=== PATIENT | female | born 1970 | race Caucasian/White ===

== ENCOUNTER → 2019-03-13 | Outpatient (CLI) | payer OTHER | LOC: FIMAGING 15:44 | PROVIDERS: ATTEND Physician Assistant | DX: E04.1 Nontoxic single thyroid nodule (principal) ==

== ENCOUNTER → 2019-03-24 | Outpatient (CLI) | payer OTHER ==
[~2019-03-24] MED LIST: LIDOCAINE 1% 300 MG/30 ML SDV ONE
== END ==
LOC: FIMAGING 12:20
PROVIDERS: ATTEND Physician Assistant
PROC: 0G9K3ZX Drainage of Thyroid Gland, Percutaneous Approach, Diagnostic (ICD-10-PCS; principal; 2019-03-24)
DX: C73 Malignant neoplasm of thyroid gland (principal)

== ENCOUNTER 2019-04-14 12:16 | Observation (INO) | payer OTHER ==
[~2019-04-14 12:16] MED LIST changes: +BUPIVACAINE/EPI 0.5% 30 ML SDV ONE; -LIDOCAINE 1% 300 MG/30 ML SDV ONE; +LR 1,000 ML IV ONE; +THROMBIN (BOVINE) 5,000 UNIT VIAL TP ONE; +ceFAZolin 2 GM/DEXTROSE 100 ML IV ONE
--- NOTE | 2019-04-14 12:34 | PDHPUP ---
History & Physical Update H&P update statement: This history and physical update is based on an assessment of the patient which was completed after admission or registration (within 24 hours), but prior to the surgery/procedure. H&P update: H&P reviewed & patient examined, no change in patient's condition since H&P completed
--- NOTE | 2019-04-14 12:51 | PDANEPAE ---
ANE History of Present Illness Thyroid mass ANE Past Medical History - Cardiovascular History Hx Hypertension: No Hx Arrhythmias: No Hx Chest Pain: No Hx Coronary Artery / Peripheral Vascular Disease: No Hx CHF / Valvular Disease: No Hx Palpitations: No - Pulmonary History Hx COPD: No Hx Asthma/Reactive Airway Disease: No Hx Recent Upper Respiratory Infection: No Hx Oxygen in Use at Home: No Hx Sleep Apnea: No Sleep Apnea Screening Result - Last Documented: Negative - Neurologic History Hx Cerebrovascular Accident: No Hx Seizures: Yes Hx Dementia: No Neurologic History Comment: 2005 STRESS INDUCED RX FOR AWHILE - Endocrine History Hx Diabetes: No Endocrine History Comment: THYROID LUMP - Renal History Hx Renal Disorders: No - Liver History Hx Hepatic Disorders: No - Neurological & Psychiatric Hx Hx Neurological and Psychiatric Disorders: No - Cancer History Hx Cancer: Yes Cancer History Comment: THYROID - Congenital Disorder History Hx Congenital Disorders: No - GI History Hx Gastrointestinal Disorders: No - Other Health History Other Health History: NONE - Chronic Pain History Chronic Pain: No - Surgical History Prior Surgeries: LT KNEE ACL ANE Review of Systems Review of Systems: - Exercise capacity METS (RN): 4 METS ANE Patient History - Allergies Allergies/Adverse Reactions: No Known Allergies Allergy (Verified 04/09/19 11:33) - Home Medications Home Medications: Levonorgestrel [Mirena] 1 each IY [id number] 04/09/19 [Last Taken Unknown] Multivitamins [Multivitamin (*)] 1 each PO DAILY 04/09/19 [Last Taken Unknown] - Anes Hx Anes Hx: no prior problems - Smoking Hx Smoking Status: Never smoked - Family Anes Hx Family Hx Anesthesia Complications: NEG ANE Labs/Vital Signs - Vital Signs Height: 160.02 cm Weight: 61.235 kg ANE Physical Exam - Airway Neck exam: FROM Mallampati Score: Class 2 Mouth exam: normal dental/mouth exam - Pulmonary Pulmonary: no respiratory distress - Cardiovascular Cardiovascular: regular rate and rhythym - ASA Status ASA Status: I ANE Anesthesia Plan Anesthesia Plan: general endotracheal anesthesia
[2019-04-14] MEDS ORDERED: MIDAZOLAM 2 MG/2 ML VIAL IVP ONE (12:52)
[2019-04-14] MEDS ORDERED: MIDAZOLAM 2 MG/2 ML VIAL ONE (12:53)
[2019-04-14] MEDS ORDERED: fentaNYL 100 MCG/2 ML INJ ONE ×2 (13:00→14:47)
[2019-04-14] MEDS ORDERED: PROPOFOL 200 MG/20 ML VIAL ONE (13:01)
[2019-04-14] MEDS ORDERED: ONDANSETRON 4 MG/2 ML VIAL ONE ×2 (13:14→14:45)
[2019-04-14] MEDS ORDERED: DEXAMETHASONE 4 MG/ML VIAL ONE (13:14)
[2019-04-14] MEDS ORDERED: ROCURONIUM 50 MG/5 ML VIAL ONE (13:14)
[2019-04-14] MEDS ORDERED: oxyCODONE IR 5 MG TAB PO PRN (13:20)
[2019-04-14] MEDS ORDERED: HYDROCODONE/APAP 5/325 TAB PO PRN (13:20)
[2019-04-14] MEDS ORDERED: PROMETHAZINE HCL 25 MG/ML INJ IVP PRN ×2 (13:20→20:58)
[2019-04-14] MEDS ORDERED: NALOXONE HCL 0.4 MG/ML INJ IVP PRN ×2 (13:20→14:48)
[2019-04-14] MEDS ORDERED: ONDANSETRON 4 MG/2 ML VIAL IVP PRN ×2 (13:20→14:51)
[2019-04-14] MEDS ORDERED: SUGAMMADEX SODIUM 200 MG/2 ML VIAL IVP ONE (14:21)
--- NOTE | 2019-04-14 14:31 | POSTANESTH ---
Post Anesthetic Evaluation Cardiovascular Status: Similar to Pre-Op Cond, Tx Hyper/Hypo-tension Respiratory Status: Similar to Pre-op Cond. Level of Consciousness/Mental Status: Can Participate in Eval, Alert and Oriented Pain Control: Adequate, Prn Tx Ordered Nausea/Vomiting Control: Adequate, Prn Tx Ordered Complications Possibly Related to Anesthesia: None Noted
[2019-04-14] MEDS: fentaNYL 100 MCG/2 ML INJ IVP PRN ×2 (14:49→15:01)
[2019-04-14] MEDS ORDERED: HYDROmorphONE/DILAUDID 1 MG/ML INJ ONE (15:15)
[2019-04-14] MEDS ORDERED: LABETALOL HCL 5 MG/ML 20 ML MDV ONE (15:18)
[2019-04-14] MEDS: LABETALOL HCL 5 MG/ML 20 ML MDV IVP PRN ×4 (15:18→15:52)
[2019-04-14] MEDS: HYDROmorphONE/DILAUDID 1 MG/ML INJ IVP PRN ×7 (15:27→21:16)
[2019-04-14] MEDS ORDERED: ENALAPRILAT DIHYDRATE 1.25 MG/ML VIAL ONE ×2 (16:19→16:31)
[2019-04-14] MEDS ORDERED: ENALAPRILAT DIHYDRATE 1.25 MG/ML VIAL IV ONE (16:30)
--- NOTE | 2019-04-14 18:17 | POSTOPPROG ---
Post Op Note Date of Operation: 04/14/19 Surgeon: Sam Neil Welder Tech: Julieth Zaragoza Anesthesiologist: Sim Butcher Anesthesia: GET(General Endotracheal) Pre-op Diagnosis: papillary thyroid CA Post-op Diagnosis: same Procedure: total thyroidectomy, central compartment LN bx's Findings: papillary CA in left lobe confirmed on frozen section Inf/Abcess present in the surg proc area at time of surgery?: No EBL: Minimal Complications: none Bowel Protocol: N/A Clean Closure Performed: N/A Specimen(s): to path
--- NOTE | 2019-04-14 19:04 | SOAPPROG ---
SOAP Progress Note Assessment/Plan: Assessment: POSTOP TOTAL THYROIDECTOMY VOICE OKAY/CHOVSTEK'S NEGATIVE/WOUND OKAY Plan: HOME IN THE A.M. 04/14/19 19:02 Objective: Vital Signs Temp Pulse Resp BP Pulse Ox 36.8 C 72 16 148/97 H 98 04/14/19 18:17 04/14/19 18:17 04/14/19 18:17 04/14/19 18:17 04/14/19 18:17 04/13/19 04/14/19 04/15/19 05:59 05:59 05:59 Intake Total 920 Output Total 5 Balance 915 ICD10 Worksheet Patient Problems: Problems Problem Status Onset Graves' disease with exophthalmos Acute - ICD10 Problem Qualifiers (1) Graves' disease with exophthalmos
[2019-04-14] MEDS: DOCUSATE SODIUM 100 MG CAP PO SCH (21:16)
[2019-04-15] MEDS: OXYCODONE/APAP 5/325 TAB PO PRN ×3 (01:45→07:23)
[2019-04-15 07:10] VITALS: BP 103/63
[2019-04-15] MEDS: DOCUSATE SODIUM 100 MG CAP PO SCH (07:23)
--- NOTE | 2019-04-15 08:21 | SOAPPROG ---
SOAP Progress Note Assessment/Plan: Assessment/Plan: 48 Y F s/p total thyroidectomy for papillary thyroid CA. POD# 1. Doing well. Ca++ wnl. Pain controlled. Wound intact. Path pending. Dispo: home today on cytomel with f/u planned c gen surg and endocrine. S: working on pain control. no complaints. O: alert, nad inc cdi no wob rrr abd soft nt. 04/15/19 08:19 Objective: Vital Signs Temp Pulse Resp BP Pulse Ox 36.8 C 61 16 103/63 96 04/15/19 07:07 04/15/19 07:07 04/15/19 07:07 04/15/19 07:07 04/15/19 07:07 Laboratory Results 04/15/19 04:17 04/15/19 04:17 04/14/19 04/15/19 04/16/19 05:59 05:59 05:59 Intake Total 1280 Output Total 1305 Balance -25 ICD10 Worksheet Patient Problems: Problems Problem Status Onset Graves' disease with exophthalmos Acute
[2019-04-15] MEDS ORDERED: LIOTHYRONINE SODIUM 25 MCG TAB PO SCH (09:00)
[2019-04-15] MEDS ORDERED: LIOTHYRONINE SODIUM 5 MCG TAB PO SCH (09:00)
--- NOTE | 2019-04-15 11:40 | GOP ---
[f rep st] OPERATIVE REPORT DATE OF OPERATION: 04/14/2019 SURGEON: Sam Neil MD BOLT SAWYER: SLOAN Sol. ANESTHESIA: Dr. Butcher. PREOPERATIVE DIAGNOSIS: Papillary thyroid cancer. POSTOPERATIVE DIAGNOSIS: Papillary thyroid cancer. PROCEDURE PERFORMED: Total thyroidectomy with central compartment lymph node dissection. FINDINGS: Patient was found to have papillary cancer in the central left lobe of the thyroid with at least a 2.5 cm nodule. There were no obvious lymph nodes involved. DESCRIPTION OF PROCEDURE: The patient was taken to the operating room where she received satisfactor y general endotracheal anesthesia by Dr. Butcher, placed in supine position, prepped and draped in usual sterile fashion. A low neck incision was made and carried down through the platysma and sub cutaneous tissue. Cutaneous platysmal flaps were developed to the sternal notch and to the thyroid c artilage. The strap muscles were in the midline, and both lobes of the thyroid were mobili zed and examined. The mass was in the left lobe. Left lobe dissection proceeded close to the thyroi d capsule. Parathyroid glands were identified, and their blood supply was preserved and they were di ssected away from the thyroid capsule. The recurrent laryngeal nerves were identified on both sides and spared from injury. After clearly delineating the anatomy, the superior pole was divided with th e Harmonic scalpel and the left thyroid lobe was rotated medially and dissected off the trachea acros s the midline. A similar procedure was done on the right lobe which was smaller. A small nubbin of thyroid tissue was left near the recurrent nerve insertion on the right side. The superior pole vess els were again taken with the Harmonic scalpel and that lobe was also rotated medially and dissected off the trachea and the entire thyroid was removed intact. Hemostasis was assured with hemoclips and electrocautery with the Harmonic scalpel. Topical thrombin was placed in the surgical bed. Strap muscles were approximated with a running 3-0 Vicryl suture, a nd the platysma was closed with a running 3-0 Vicryl suture. The superficial layers were infiltrated with 0.5% Marcaine. Skin was closed with 4-0 Monocryl subcuticular stitch. She tolerated the proce dure well and was taken to the recovery room in good condition. There were no complications. Blood loss was negligible. /[id number]/MODL
[2019-04-16] MEDS ORDERED: ENOXAPARIN 40 MG/0.4 ML SYR SC SCH (09:00)
== END 2019-04-15 11:22 | disposition home or self-care (01) ==
LOC: F3E 12:16
PROVIDERS: ADMIT Surgery; ATTEND Surgery
DX: C73 Malignant neoplasm of thyroid gland (principal)
CPT/HCPCS: 60252; G0378; J0690; J1100; J1170; J2250; J2405; J2550; J2704; J3010